=== PATIENT | female | born 1995 | race Caucasian/White ===

== ENCOUNTER 2022-02-01 00:01 | Inpatient (IN) | payer OTHER ==
[~2022-02-01] VITALS: Ht 167.6 cm; Wt 88.5 kg
[~2022-02-01 00:01] MED LIST: EFFEXOR XR150 MG PO; FLONASE ALLERG9.9 ML NAS; HYDROCODONE-ACE15 M3 PO; MICROGESTIN FE1 EAC1 PO; XANAX0.25 MG PO; ZOFRAN4 MG PO
--- NOTE | 2022-02-01 12:02 | PR ---
[facility] [address] [place], [place] [address] Signed Progress Notes IP Datetime Report Generated by CPN: 02/01/2022 12:02 PROGRESS NOTES: [id number] Impression: Normal Progression of Labor; Reassuring Heart Rate Procedures: Sterile Vag Exam Plan: Continue Present Management; Anticipate Vaginal Delivery VITAL SIGNS: [id number] Vital Signs: Reviewed; Within Normal Limits EXAM: [id number] Dilatation: 9.5 Effacement: 100 Station: -1 Contractions: q2-4 min MEMBRANES: [id number] Membranes Status: Ruptured Comments: Progressing well s/p cytotec x 2, AROM moderate amount of clear fluid Reposition to right side for small cervical lip, discussed laboring down if desired. Pt comfortable with epidural. FETUS A: [id number] FHR Baseline: 120 Variability: Moderate 6-25bpm Accelerations: 15X15 Decelerations: None FHR Category: Category I Presentation: Vertex Comments on Fetus A: no evidence of acidemia FETUS B: [id number] Signing Physician: Phuong Jimenez DO Copies: ~ *Electronically Signed* 02/01/22 1202 PHUONG JIEMNEZ DO PATIENT NAME: DOREEN ARORA PROGRESS NOTE DATE OF : [birth year] PHYSICIAN: PHUONG JIMENEZ #: [id number] REPORT IS CONFIDENTIAL AND NOT TO BE RELEASED WITHOUT AUTHORIZATION
--- NOTE | 2022-02-02 09:44 | PR ---
[facility] [facility] [address] [place], [place] [address] Signed PP Progress Notes Datetime Report Generated by ALYSON: 02/02/2022 09:44 SUBJECTIVE: [id number] Pain: Within Normal Limits Nausea/Vomiting: Denies Flatus: Yes Bowel Movement: No Vital Signs: [id number] Vital Signs: Reviewed; Within Normal Limits Notable Details: Non-elevated since delivery Cardiovascular: Normal Respiratory: Normal Abdomen/Uterus: Normal Lochia: Normal Vulva/Perineum: Normal Extremities: Normal Progress: Normal Exam Comments: NAD, sitting up in bed RRR No dyspnea/ retractions Abd SNTND, FFBU Vulva: edema improved, no hematoma Ext: trace edema, Cuauhtemoc's neg BL IMPRESSION/PLAN/PROCEDURES: [id number] Impression: Normal Progression Plan: Continue Present Management; Discharge Procedures: None Progress Notes: now PPD#1 s/p -EIOL at 39 2/7 weeks gestation -significant labial laceration and 2nd degree perineal, right vaginal wall lacerations, all repaired -elevated BP prior to epidural, labs negative for preeclampsia -Mild acute blood loss anemia, asymptomatic, start oral iron Plan: DC to home per strong pt preference, follow-up in office in 2 weeks or sooner if needed Micronor for contraception Outpatient support as needed *Electronically Signed* 02/02/22 0944 PHUONG JIMENEZ DO PATIENT NAME: DOREEN ARORA PROGRESS NOTE DATE OF : 96 PHYSICIAN: PHUONG JIMENEZ DO RPT #: [id number] REPORT IS CONFIDENTIAL AND NOT TO BE RELEASED WITHOUT AUTHORIZATION [address] [address] Signed Signing Physician: Phuong Jimenez DO Copies: ~ *Electronically Signed* 02/02/22 0944 PHUONG JIMENEZ DO PATIENT NAME: DOREEN ARORA PROGRESS NOTE DATE OF : 96 PHYSICIAN: PHUONG JIMENEZ DO RPT #: [id number] REPORT IS CONFIDENTIAL AND NOT TO BE RELEASED WITHOUT AUTHORIZATION
== END 2022-02-02 15:35 | disposition home or self-care (01) | DRG 806 ==
LOC: FBC 00:01
PROVIDERS: ADMIT Obstetrics & Gynecology; ATTEND Obstetrics & Gynecology
PROC: 10E0XZZ Delivery of Products of Conception, External Approach (ICD-10-PCS; principal; 2022-02-01)
PROC: 0KQM0ZZ Repair Perineum Muscle, Open Approach (ICD-10-PCS; 2022-02-01)
PROC: 3E0P7VZ Introduction of Hormone into Female Reproductive, Via Natural or Artificial Opening (ICD-10-PCS; 2022-02-01)
PROC: 3E0R3BZ Introduction of Anesthetic Agent into Spinal Canal, Percutaneous Approach (ICD-10-PCS; 2022-02-01)
PROC: 00HU33Z Insertion of Infusion Device into Spinal Canal, Percutaneous Approach (ICD-10-PCS; 2022-02-01)
DX: O98.32 Other infections with a predominantly sexual mode of transmission complicating childbirth (principal); D62 Acute posthemorrhagic anemia; Z37.0 Single live birth; Z3A.39 39 weeks gestation of pregnancy; A60.00 Herpesviral infection of urogenital system, unspecified; Z20.822 Contact with and (suspected) exposure to COVID-19; O90.81 Anemia of the puerperium; O69.1XX0 Labor and delivery complicated by cord around neck, with compression, not applicable or unspecified; O70.1 Second degree perineal laceration during delivery; Z88.0 Allergy status to penicillin; Z88.2 Allergy status to sulfonamides; Z79.899 Other long term (current) drug therapy
CPT/HCPCS: 01960; 36415; 80053; 82570; 83615; 84156; 84550; 85027; 86850; 86900; 86901; A9270; J2590; J2795; J3010; J7121; U0003